=== PATIENT | female | born 1985 ===

== ENCOUNTER 2020-10-10 06:20 | Day surgery (SDC) | payer OTHER ==
[2020-10-10] MEDS ORDERED: NEXIUM 24HR20 M1 PO (08:49)
== END 2020-10-10 10:00 | disposition home or self-care (01) ==
LOC: AMB-ENDOS 06:20
PROVIDERS: ATTEND Surgery
DX: D13.1 Benign neoplasm of stomach (principal); K44.9 Diaphragmatic hernia without obstruction or gangrene; K21.00 Gastro-esophageal reflux disease with esophagitis, without bleeding; Z20.828 Contact with and (suspected) exposure to other viral communicable diseases